=== PATIENT | female | born 1990 | race Two or more races ===

== ENCOUNTER 2017-10-20 00:26 | Emergency (ER) | payer SELFPAY ==
[2017-10-20 01:06] VITALS: RESP 18; TEMP 98.2; O2SAT 98
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
[2017-10-20 02:14] VITALS: BP 135/78; PULSE 87
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
== END 2017-10-20 23:49 | disposition home or self-care (01) ==
LOC: ED 00:26
DX: M54.2 Cervicalgia (principal); M54.5 Low back pain; V43.62XA Car passenger injured in collision with other type car in traffic accident, initial encounter; Y92.410 Unspecified street and highway as the place of occurrence of the external cause